=== PATIENT | female | born 2000 | race African-American/Black ===

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

== ENCOUNTER 2022-03-13 08:23 | Emergency (ER) | payer OTHER, SELFPAY | END 2022-03-13 09:21 | disposition home or self-care (01) | LOC: ERS 08:23 | DX: M25.511 Pain in right shoulder (principal); W20.8XXA Other cause of strike by thrown, projected or falling object, initial encounter ==

== ENCOUNTER 2022-04-24 04:05 | Emergency (ER) | payer SELFPAY ==
[2022-04-24] MEDS ORDERED: Lidocaine 1% PF 5 ML VIAL ONE (04:35)
== END 2022-04-24 05:04 | disposition home or self-care (01) ==
LOC: ERS 04:05
DX: T17.1XXA Foreign body in nostril, initial encounter (principal)
CPT/HCPCS: 99282

== ENCOUNTER 2023-02-12 12:06 | Emergency (ER) | payer SELFPAY ==
[2023-02-12] MEDS ORDERED: Ibuprofen 200 MG TAB ONE (13:16)
== END 2023-02-12 13:11 | disposition home or self-care (01) ==
LOC: ERS 12:06
DX: H72.91 Unspecified perforation of tympanic membrane, right ear (principal)
CPT/HCPCS: 99282